=== PATIENT | male | born 1950 | race Caucasian/White ===

== ENCOUNTER 2017-05-13 13:13 | Emergency (ER) | payer MEDICARE, OTHER ==
[2017-05-13] MEDS ORDERED: Sodium Chloride 0.9% 10 ML Syringe FLUSH PRN (13:35)
[2017-05-13] MEDS ORDERED: Sodium Chloride 0.9% 2.5 ML Syringe FLUSH PRN (13:35)
[2017-05-13] MEDS ORDERED: Aspirin 81 MG Tab.Chew PO ONE (13:35)
[2017-05-13] MEDS ORDERED: Sodium Chloride 0.9% 1,000 ML IV SCH (13:45)
--- NOTE | 2017-05-13 13:55 | EDM.PDOC ---
ED HPI GENERAL MEDICAL PROBLEM - General Chief Complaint: Back Pain or Injury Stated Complaint: BACK PAIN Time Seen by Provider: 05/13/17 13:35 Source of Information: Reports: Patient History Limitations: Reports: No Limitations - History of Present Illness INITIAL COMMENTS - FREE TEXT/NARRATIVE: HISTORY AND PHYSICAL: History of present illness: [66-year-old male with a past medical history of GA in August 2016 with 3 stents placed at that time. 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 He is currently visiting relatives and presented to the emergency department today because of right upper back soreness and pain. Patient states he wrote a 4 reich recently and then hit golf balls yesterday in his right upper back is sore with movement and palpation. He denies spinal pain. Denies chest pain shortness of breath nausea vomiting diaphoresis or any exertional symptoms whatsoever. No pleuritic pain no productive cough or fever. Denies abdominal or flank pain. Patient is otherwise asymptomatic. Patient suspected that he had muscle soreness but his was concerned so he came to the emergency department for evaluation. Compliant with his baby aspirin daily Review of systems: As per history of present illness and below otherwise all systems reviewed and negative. Past medical history: As per history of present illness and as reviewed below otherwise noncontributory. Surgical history: As per history of present illness and as reviewed below otherwise noncontributory. Social history: No reported history of drug or alcohol abuse. Family history: As per history of present illness and as reviewed below otherwise noncontributory. Physical exam: Well-appearing patient smiling and comfortable-appearing clear lungs regular rate and rhythm no tachycardia. Easily reproducible soft tissue tenderness in the right upper back at the medial scapular distribution. No bony tenderness no ecchymosis crepitus or soft tissue swelling. No spinal tenderness whatsoever .no bony rib tenderness HEENT: Atraumatic, normocephalic, pupils reactive, negative for conjunctival pallor or scleral icterus, mucous membranes moist, throat clear, neck supple, nontender, trachea midline. Lungs: Clear to auscultation, breath sounds equal bilaterally, chest nontender. Heart: S1S2, regular, negative for clicks, rubs, or JVD. Abdomen: Soft, nondistended, nontender. Negative for masses or hepatosplenomegaly. Negative for costovertebral tenderness. Pelvis: Stable nontender. Genitourinary: Deferred. Rectal: Deferred. Extremities: Atraumatic, negative for cords or calf pain. Neurovascular unremarkable. Neuro: Awake, alert, oriented. Cranial nerves II through XII unremarkable. Cerebellum unremarkable. Motor and sensory unremarkable throughout. Exam nonfocal. Diagnostics: [Chest x-ray unremarkable. Interpreted by me EKG with normal sinus bradycardia at 47 normal axis no STEMI] Therapeutics: [Po aspirin given] Impression: [] Plan: [Signs and symptoms consistent with easily reproducible muscle tenderness of the right upper back secondary to muscle strain. Patient with a clearly identifiable prodromal history of hitting golf balls yesterday. Full workup unremarkable patient has no clinical evidence of ACS. Full workup unremarkable including chest x-ray and EKG. CTA of the aorta done to rule out less likely possibility of aortic abnormality or dissection. This result was unremarkable. Patient continues to be well appearing and fall diagnosis is musculoskeletal etiology as previously mentioned. No further workup or treatment is indicated patient aware to take NSAIDs and continue his baby aspirin daily and follow-up with his PCP and cardiology in 1- 2 days. He and his agree with outpatient follow-up and strict return precautions given] Definitive disposition and diagnosis as appropriate pending reevaluation and review of above. Upper Back Pain Score (Numeric/FACES): 6 - Related Data Allergies Allergy/AdvReac Type Severity Reaction Status Date / Time No Known Allergies Allergy Verified 05/13/17 14:07 Home Meds: Home Meds Aspirin [Ecotrin] 81 mg PO DAILY 05/13/17 [History] Metoprolol Succinate [Toprol XL] 25 mg PO DAILY 05/13/17 [History] Nitroglycerin 0.4 mg SL ASDIRECTED PRN 05/13/17 [History] Pantoprazole [ProTONIX] 40 mg PO DAILY 05/13/17 [History] Pravastatin [Pravachol] 40 mg PO DAILY 05/13/17 [History] amLODIPine [Norvasc] 5 mg PO DAILY 05/13/17 [History] ED ROS GENERAL - Review of Systems Review Of Systems: See Below (History of present illness) ED EXAM, GENERAL - Physical Exam Exam: See Below (History of present illness) Course - Vital Signs Last Recorded V/S: Last Vital Signs Temp 36.4 C 05/13/17 13:37 Pulse 50 L 05/13/17 16:09 Resp 19 05/13/17 16:09 BP 139/73 05/13/17 16:09 Pulse Ox 99 05/13/17 16:09 - Orders/Labs/Meds Orders: Active Orders 24 hr Category Date Time Status EKG 12 Lead [EKG Documentation Completion] [RC] STAT Care 05/13/17 13:36 Active Ang Chest [CT] Stat Exams 05/13/17 15:28 Taken CTA Abdomen W & W/O Contrast [Ang Abdomen] [CT] Stat Exams 05/13/17 15:28 Taken Chest 1V Frontal [CR] Stat Exams 05/13/17 13:36 Taken Sodium Chloride 0.9% [Normal Saline] 1,000 ml Med 05/13/17 13:45 Active IV ASDIRECTED Sodium Chloride 0.9% [Saline Flush] Med 05/13/17 13:35 Active 10 ml FLUSH ASDIRECTED PRN Sodium Chloride 0.9% [Saline Flush] Med 05/13/17 13:35 Active 2.5 ml FLUSH ASDIRECTED PRN Peripheral IV Insertion Adult [OM.PC] Stat Oth 05/13/17 13:36 Ordered Medication Orders Sodium Chloride (Normal Saline) 1,000 mls @ 125 mls/hr IV ASDIRECTED MURTAZA Last Admin: 05/13/17 13:55 Dose: 125 mls/hr Sodium Chloride (Saline Flush) 10 ml FLUSH ASDIRECTED PRN PRN Reason: Keep Vein Open Sodium Chloride (Saline Flush) 2.5 ml FLUSH ASDIRECTED PRN PRN Reason: Keep Vein Open Labs: Laboratory Tests 05/13/17 05/13/17 05/13/17 Range/Units 13:51 13:51 13:51 WBC 7.14 (4.0-11.0) K/uL RBC 4.76 (4.50-5.90) M/uL Hgb 14.3 (13.0-17.0) g/dL Hct 41.3 (38.0-50.0) % MCV 86.8 (80.0-98.0) fL MCH 30.0 (27.0-32.0) pg MCHC 34.6 (31.0-37.0) g/dL RDW Std Deviation 42.6 (28.0-62.0) fl RDW Coeff of Felice 14 (11.0-15.0) % Plt Count 198 (150-400) K/uL MPV 9.10 (7.40-12.00) fL Neut % (Auto) 49.4 (48.0-80.0) % Lymph % (Auto) 37.1 (16.0-40.0) % Hettinger % (Auto) 9.8 (0.0-15.0) % Eos % (Auto) 2.9 (0.0-7.0) % Baso % (Auto) 0.8 (0.0-1.5) % Neut # (Auto) 3.5 (1.4-5.7) K/uL Lymph # (Auto) 2.7 H (0.6-2.4) K/uL Hettinger # (Auto) 0.7 (0.0-0.8) K/uL Eos # (Auto) 0.2 (0.0-0.7) K/uL Baso # (Auto) 0.1 (0.0-0.1) K/uL Nucleated RBC % 0.0 /100WBC Nucleated RBCs # 0 K/uL Sodium 142 (136-146) mmol/L Potassium 4.0 (3.5-5.1) mmol/L Chloride 110 (98-110) mmol/L Carbon Dioxide 25 (21-31) mmol/L BUN 16 (6.0-23.0) mg/dL Creatinine 1.0 (0.6-1.5) mg/dL Est Cr Clr Drug Dosing 76.04 mL/min Estimated GFR (MDRD) > 60.0 ml/min Glucose 65 (60-110) mg/dL Calcium 8.6 L (8.8-10.8) mg/dL Total Bilirubin 0.5 (0.1-1.5) mg/dL AST 16 (5-40) IU/L ALT 17 (8-54) IU/L Alkaline Phosphatase 88 (40-150) Troponin I < 0.10 (0.0-0.29) NG/ML Total Protein 7.1 (6.0-8.0) g/dL Albumin 3.9 (3.4-4.8) g/dL Globulin 3.2 (2.0-3.5) g/dL Albumin/Globulin Ratio 1.2 L (1.3-2.8) Meds: Medications Generic Name Dose Route Start Last Admin Trade Name Freq PRN Reason Stop Dose Admin Sodium Chloride 1,000 mls @ 125 mls/hr 05/13/17 13:45 05/13/17 13:55 Normal Saline IV 125 mls/hr ASDIRECTED MURTAZA Administration Sodium Chloride 10 ml 05/13/17 13:35 Saline Flush FLUSH ASDIRECTED PRN Keep Vein Open Sodium Chloride 2.5 ml 05/13/17 13:35 Saline Flush FLUSH ASDIRECTED PRN Keep Vein Open Discontinued Medications Generic Name Dose Route Start Last Admin Trade Name Freq PRN Reason Stop Dose Admin Aspirin 324 mg 05/13/17 13:35 05/13/17 13:54 Aspirin PO 05/13/17 13:36 324 mg ONETIME ONE Administration Iopamidol 110 ml 05/13/17 16:05 05/13/17 16:06 Isovue Multipack-370 (76%) IVPUSH 05/13/17 16:06 110 ml ONETIME STA Administration Departure - Departure Time of Disposition: 17:26 Disposition: Home, Self-Care 01 Condition: Good Clinical Impression: Strain, dorsal, Upper back pain - Discharge Information Instructions: Back Pain, Adult Referrals: PCP,None [Primary Care Provider] - Forms: ED Department Discharge Additional Instructions: It appears that your upper back discomfort as a result of your strenuous activity golfing yesterday. You have mild muscle soreness and tenderness. Take ibuprofen 800 mg every 6 hours as needed and consider warm compresses soaks and gentle stretches. A full workup of your heart and a CAT scan of your aorta today show some mild atherosclerosis of your aorta but no signs of a cardiac emergency or other problems for which he would need to be admitted to the hospital. Follow-up your Dr. tomorrow and return immediately for new severe or worsening symptoms. - My Orders Last 24 Hours: My Active Orders 05/13/17 13:35 Sodium Chloride 0.9% [Saline Flush] 10 ml FLUSH ASDIRECTED PRN Sodium Chloride 0.9% [Saline Flush] 2.5 ml FLUSH ASDIRECTED PRN 05/13/17 13:36 EKG 12 Lead [EKG Documentation Completion] [RC] STAT Chest 1V Frontal [CR] Stat Peripheral IV Insertion Adult [OM.PC] Stat 05/13/17 13:45 Sodium Chloride 0.9% [Normal Saline] 1,000 ml IV ASDIRECTED 05/13/17 15:28 Ang Chest [CT] Stat CTA Abdomen W & W/O Contrast [Ang Abdomen] [CT] Stat - Assessment/Plan Last 24 Hours: My Active Orders 05/13/17 13:35 Sodium Chloride 0.9% [Saline Flush] 10 ml FLUSH ASDIRECTED PRN Sodium Chloride 0.9% [Saline Flush] 2.5 ml FLUSH ASDIRECTED PRN 05/13/17 13:36 EKG 12 Lead [EKG Documentation Completion] [RC] STAT Chest 1V Frontal [CR] Stat Peripheral IV Insertion Adult [OM.PC] Stat 05/13/17 13:45 Sodium Chloride 0.9% [Normal Saline] 1,000 ml IV ASDIRECTED 05/13/17 15:28 Ang Chest [CT] Stat CTA Abdomen W & W/O Contrast [Ang Abdomen] [CT] Stat
[2017-05-13 14:25] LABS: CHLORIDE,CL 110 mmol/L (98-110); SODIUM,NA 142 mmol/L (136-146)
[2017-05-13] MEDS ORDERED: Iopamidol 755 MG/ML 500 ML Multipack Bottle IVPUSH STA (16:05)
[2017-05-13 17:45] VITALS: BP 132/76
--- NOTE | 2017-05-13 19:43 | CR ---
EXAM DATE: 05/13/17 PATIENT'S AGE: 66 Patient: DIEGO OAKES Facility: [place], [place] Site . Site : 1950 Study: XRay Chest [id number]/[id number] 2:27:34 PM Ordering Physician: Jadiel Harris Final Report: CLINICAL INDICATION: Chest and back pain. Findings: There is atherosclerotic calcification within the aortic arch. There is a linear density projecting upon the descending thoracic aorta possibly representing displaced intimal calcification. The heart is magnified by the AP technique. The lungs are clear. The pulmonary vasculature and pleural surfaces are unremarkable. The bony thorax appears intact. Impression: Possible displaced intimal calcification within the descending thoracic aorta. A contrast infused CT to assess for the possibility of aortic dissection is suggested especially in the setting of chest and back pain. Dictated by Henri Cheung MD @ May 13 2017 2:30PM (Electronic Signature) Report Signed by Proxy. KISHA
--- NOTE | 2017-05-17 10:27 | CT ---
EXAM DATE: 05/13/17 PATIENT'S AGE: 66 Patient: DIEGO OAKES Facility: [facility] Site Site : 1950 Study: CT-Chest/Abd/Pelvis Angio -05/13/2017 4:25:22 PM Ordering Physician: Jadiel Harris Final Report: Exam: CT angiography of the chest and abdomen. Clinical Information: Back pain between shoulder blades. Comparison: None. Findings: Normal caliber thoracic aorta with mild scattered atheromatous changes. No evidence of aneurysm or dissection. The visualized great vessels are patent. The left common carotid artery arises from the right innominate artery (bovine arch). Normal caliber abdominal aorta with moderate peripheral atheromatous changes. The celiac artery, SMA, and HERMANN are widely patent. Two right and single left renal arteries are widely patent. The bilateral common iliac, internal iliac, and external iliac arteries are patent with mild scattered atheromatous changes. The lung apices are incompletely visualized. Minimal emphysematous changes in the lungs. Minimal atelectasis in the lingula. No lymphadenopathy in the chest. Heart size within normal limits. Left circumflex coronary artery stents. Normal caliber pulmonary arteries. No evidence of pulmonary embolism. The visualized thyroid is unremarkable. Mild bilateral gynecomastia. Left renal cysts. The liver, gallbladder, pancreas, spleen, adrenals, and kidneys are otherwise unremarkable. Tiny esophageal hiatal hernia. Normal caliber small bowel and colon. No lymphadenopathy in the abdomen. Scattered degenerative changes in the shoulders and visualized spine. Impression: 1. No identifiable etiology in the chest or abdomen to explain patient`s back pain. Specifically, no evidence of aortic aneurysm or dissection. 2. Minimal emphysematous changes in the lungs. Please note that all CT scans at this facility use dose modulation, iterative reconstruction, and/or weight-based dosing when appropriate to reduce radiation dose to as low as reasonably achievable. Dictated by Stiven Curtis MD @ May 16 2017 10:40AM Signed by: Stiven Curtis MD @05/16/2017 11:07:40 AM (Electronic Signature) Report Signed by Proxy. [facility]
--- NOTE | 2017-05-17 10:28 | CT ---
EXAM DATE: 05/13/17 PATIENT'S AGE: 66 Patient: DIEGO OAKES Facility: [facility], [facility] Site Site : 1950 Study: CT-Chest/Abd/Pelvis Angio -05/13/2017 4:25:22 PM Ordering Physician: Jadiel Harris Final Report: Exam: CT angiography of the chest and abdomen. Clinical Information: Back pain between shoulder blades. Comparison: None. Findings: Normal caliber thoracic aorta with mild scattered atheromatous changes. No evidence of aneurysm or dissection. The visualized great vessels are patent. The left common carotid artery arises from the right innominate artery (bovine arch). Normal caliber abdominal aorta with moderate peripheral atheromatous changes. The celiac artery, SMA, and HERMANN are widely patent. Two right and single left renal arteries are widely patent. The bilateral common iliac, internal iliac, and external iliac arteries are patent with mild scattered atheromatous changes. The lung apices are incompletely visualized. Minimal emphysematous changes in the lungs. Minimal atelectasis in the lingula. No lymphadenopathy in the chest. Heart size within normal limits. Left circumflex coronary artery stents. Normal caliber pulmonary arteries. No evidence of pulmonary embolism. The visualized thyroid is unremarkable. Mild bilateral gynecomastia. Left renal cysts. The liver, gallbladder, pancreas, spleen, adrenals, and kidneys are otherwise unremarkable. Tiny esophageal hiatal hernia. Normal caliber small bowel and colon. No lymphadenopathy in the abdomen. Scattered degenerative changes in the shoulders and visualized spine. Impression: 1. No identifiable etiology in the chest or abdomen to explain patient`s back pain. Specifically, no evidence of aortic aneurysm or dissection. 2. Minimal emphysematous changes in the lungs. Please note that all CT scans at this facility use dose modulation, iterative reconstruction, and/or weight-based dosing when appropriate to reduce radiation dose to as low as reasonably achievable. Dictated by Stiven Curtis MD @ May 16 2017 10:40AM Signed by: Stiven Curtis MD @05/16/2017 11:07:40 AM (Electronic Signature) Report Signed by Proxy. [facility]ITAL[facility]oe
== END 2017-05-13 17:36 | disposition home or self-care (01) ==
LOC: MW.ED 13:13
DX: S29.012A Strain of muscle and tendon of back wall of thorax, initial encounter (principal); I25.2 Old myocardial infarction; Z79.82 Long term (current) use of aspirin; Z79.899 Other long term (current) drug therapy; W21.04XA Struck by golf ball, initial encounter
CPT/HCPCS: 36415; 71010; 71275; 74175; 80053; 84484; 85025; 93005; 96360; 96361; 99284; A9270; J7040; Q9967; 99283